=== PATIENT | male | born 1945 | race Caucasian/White ===

== ENCOUNTER 2016-11-12 18:51 | Inpatient (IN) | payer OTHER ==
[~2016-11-12] VITALS: Ht 175.3 cm; Wt 88.9 kg
--- NOTE | ~2016-11-12 | EXE ---
[facility] [place] [address] STRESS ECHOCARDIOGRAM Name: CLARISSE MATA Room #: 204-P [facility]#: [id number] Admission: 11/12/16 Attend Phys: Talib Rosas, Discharge: 11/13/16 Date of : 47 Date of Service: 11/13/16 1129 Report #: [id number] THIS REPORT FOR: //name// APPROVED REPORT Exam: Stress Echocardiogram Reason for Exam: Chest pain Patient Location: Echo lab Stress Nurse: Jasmina Barrientos RN HR: 86 bpm Medical History Medical History: HTN, Hyperlipidemia Cardiac Risk Factors: HTN, Hyperlipidemia Exercise History: Sedentary Procedure The patient underwent an Exercise Stress Test using the Grant Protocol. Blood pressure, heart rate, and EKG were monitored. An Echocardiogram was performed by commercial maintenance technician in four stages in quad fashion. At peak stress, four selected images were obtained and placed side by side with resting images for comparison. Testing Details Test: Exercise stress testing was performed using a Grant protocol. HR Resting HR: 86 bpm Max Heart Rate (APMHR): 150 bpm Max HR Achieved: 173 bpm Target HR (85% APMHR): 127 bpm % of APMHR: 115 Recovery HR: 97 bpm HR response to stress: Normal HR response to stress BP Resting BP: 154/108 mmHg Max BP: 200/110 mmHg Recovery BP: 152/102 mmHg ECG Resting ECG: NSR, normal EKG Recovery ECG: NSR, normal EKG Clinical Reason for Termination: Completed protocol [facility] [place] [address] STRESS ECHOCARDIOGRAM Name: CLARISSE MATA [place] Room #: 204-P [facility]..#: [id number] Admission: 11/12/16 Attend Phys: Talib Rosas, Discharge: 11/13/16 Date of : 47 Date of Service: 11/13/16 1129 Report #: [id number] Exercise duration: 6.5 min Exercise capacity: 9.3 METs Overall Exercise Capacity for Age: Good Pre-Stress Echo The resting Echocardiogram showed normal left ventricular contractility with an estimated Ejection Fraction of about 55-60%. Post-Stress Echo The stress Echocardiogram showed normal left ventricular contractility with an estimated Ejection Fraction of about 65-70%. Clinical Normal augmentation of myocardial wall segments using a 17 segment model. <ELECTRONICALLY SIGNED> By: Jaylan Morrell MD, FACC 11/13/161128 28 28 Jaylan Morrell MD, FACC /INF
--- NOTE | ~2016-11-12 | EKG ---
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: KALE : 1945 Requested By: Ursula Ash Order Number: [id number] MD: Kev Gooden Measurements Intervals [place] Rate: 107 P: 49 [place]: 161 QRS: 31 QRSD: 98 T: 44 QT: 310 QTc: 414 Interpretive Statements Sinus tachycardia RSR' in V1 or V2, probably normal variant Nonspecific ST segment abnormality No previous ECG available for comparison Electronically Signed On 11-13-2016 8:31:35 CDT by Kev Gooden [email or web address] <ELECTRONICALLY SIGNED> By: Kev Gooden MD, [facility] 11/13/16 0831 50 50 Kev Gooden MD, FAC /EPI
[2016-11-12] MEDS ORDERED: AMLODIPINE-BEN1 EAC5 PO (19:23)
[2016-11-12 19:32] LABS: MCH 33.2 pg (26.0-34.0); WBC 7.7 thou/uL (4.0-11.0)
[2016-11-12 19:34] LABS: ABSOLUTE NEUTROPHILS 5.4 thou/uL (1.4-8.2); BASOPHILS 0.7 % (0.0-2.0); HEMATOCRIT 45.4 % (42.0-52.0); HEMOGLOBIN 15.9 gm/dL (14.0-18.0); LYMPHOCYTES 18.1 % (24.0-44.0); MCHC 35.1 g/dL (28.0-37.0); MCV 94.6 fL (80.0-100.0); MONOCYTES 8.5 % (1.0-8.0); PLATELET COUNT 215 thou/uL (150-400); POLYS 69.7 % (36.0-66.0); RBC 4.79 mil/uL (4.50-6.00); RDW 13.2 % (10.5-14.5)
[2016-11-12 19:35] LABS: MANUAL DIFF NO
[2016-11-12 19:51] LABS: ANION GAP 10 mmol/L (7-16); BUN 16 mg/dL (7-18); CALCIUM 9.3 mg/dL (8.5-10.1); CHLORIDE 101 mmol/L (98-107); CO2 26 mmol/L (21-32); GLUCOSE 128 mg/dL (70-99); POTASSIUM 3.7 mmol/L (3.5-5.1); SODIUM 137 mmol/L (136-145); TROPONIN-I < 0.04 ng/mL (<0.04-0.07)
[2016-11-12] MEDS ORDERED: IBUPROFEN 400400 M2 PO (23:11)
[2016-11-12] MEDS ORDERED: APAP650 PO (23:11)
[2016-11-12] MEDS ORDERED: DAILY MULTIPLE1 EACH PO (23:12)
[2016-11-13 01:08] LABS: GLYCOHEMOGLOBIN (HGB A1C) 5.2 % (4.8-5.6)
[2016-11-13 07:57] LABS: ANION GAP 7 mmol/L (7-16); BUN 13 mg/dL (7-18); CALCIUM 8.7 mg/dL (8.5-10.1); CHLORIDE 102 mmol/L (98-107); CO2 27 mmol/L (21-32); GLUCOSE 120 mg/dL (70-99); SODIUM 136 mmol/L (136-145)
[2016-11-13 08:04] LABS: ALBUMIN 3.3 g/dL (3.4-5.0); ALKALINE PHOSPHATASE 81 U/L (46-116); CHOLESTEROL 197 mg/dL (<200); HDL CHOLESTEROL 50 mg/dL (>40); LDL CHOLESTEROL 115 mg/dL (<100); MAGNESIUM 1.9 mg/dL (1.8-2.4); SGOT 19 U/L (15-37); SGPT 29 U/L (30-65); TC:HDL 3.9 Ratio (Not establshd); TOTAL BILIRUBIN 0.6 mg/dL (<0.1-1.0); TOTAL PROTEIN 6.7 g/dL (6.4-8.2); TRIGLYCERIDE 162 mg/dL (<150); TROPONIN-I < 0.04 ng/mL (<0.04-0.07); VLDL 32 mg/dL (<40)
[2016-11-13] MEDS ORDERED: YOSPRALA DR 811 EACH PO (09:46)
[2016-11-13] MEDS ORDERED: PRAVACHOL20 MG PO (09:47)
== END 2016-11-13 10:49 | disposition home or self-care (01) | DRG 313 ==
LOC: ER 18:51 → EROBS 21:06 → 2N 21:06
PROVIDERS: Emergency Medicine; Nurse Practitioner
DX: R07.89 Other chest pain (principal); I10 Essential (primary) hypertension; M19.90 Unspecified osteoarthritis, unspecified site; E78.5 Hyperlipidemia, unspecified; E78.00 Pure hypercholesterolemia, unspecified; Z88.0 Allergy status to penicillin; Z90.49 Acquired absence of other specified parts of digestive tract; Z88.1 Allergy status to other antibiotic agents
CPT/HCPCS: 10081

== ENCOUNTER 2018-09-30 20:21 | Emergency (ER) | payer OTHER ==
[~2018-09-30] VITALS: Ht 175.3 cm; Wt 90.7 kg
[~2018-09-30 20:21] MED LIST: AMLODIPINE-BEN1 EAC5 PO; APAP650 PO; DAILY MULTIPLE1 EACH PO; IBUPROFEN 400400 M2 PO; PRAVACHOL20 MG PO; YOSPRALA DR 811 EACH PO
[2018-09-30 21:32] LABS: ABSOLUTE NEUTROPHILS 4.8 thou/uL (1.4-8.2); BASOPHILS 1.2 % (0.0-2.0); EOSINOPHILS 2.4 % (0.0-3.0); HEMATOCRIT 40.9 % (42.0-52.0); HEMOGLOBIN 14.4 gm/dL (14.0-18.0); LYMPHOCYTES 16.4 % (24.0-44.0); MCH 33.6 pg (26.0-34.0); MCHC 35.1 g/dL (28.0-37.0); MCV 95.8 fL (80.0-100.0); MONOCYTES 8.9 % (1.0-8.0); PLATELET COUNT 191 thou/uL (150-400); POLYS 71.1 % (36.0-66.0); RBC 4.27 mil/uL (4.50-6.00); RDW 13.1 % (10.5-14.5); WBC 6.7 thou/uL (4.0-11.0)
[2018-09-30 21:44] LABS: ANION GAP 9 mmol/L (7-16); BUN 15 mg/dL (7-18); CALCIUM 8.8 mg/dL (8.5-10.1); CHLORIDE 103 mmol/L (98-107); CO2 24 mmol/L (21-32); CREATININE 0.9 mg/dL (0.7-1.3); GLUCOSE 109 mg/dL (74-106); POTASSIUM 3.6 mmol/L (3.5-5.1); SODIUM 136 mmol/L (136-145)
[2018-09-30 21:52] LABS: TROPONIN-I <0.06 ng/mL (<0.06)
[2018-10-01 00:39] VITALS: BP 141/95
--- NOTE | 2018-10-01 10:06 | EKG ---
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 : 1945 Requested By: Salome Oliver Order Number: [id number] MD: Rodolfo Tillman Measurements Intervals [place] Rate: 99 P: 33 [place]: 142 QRS: 6 QRSD: 96 T: 29 QT: 353 QTc: 453 Interpretive Statements Sinus rhythm Probable left atrial enlargement Baseline wander in lead(s) V6 Compared to ECG 11/12/2016 18:51:02 Sinus tachycardia no longer present ST (T wave) deviation no longer present Electronically Signed On 10-01-2018 10:06:17 LICENSED PHARMACIST by Rodolfo Tillman [email or web address] <ELECTRONICALLY SIGNED> By: Rodolfo Tillman MD 10/01/18 1006 46 46 Rodolfo Tillman MD /EPI
== END 2018-10-01 00:40 | disposition home or self-care (01) ==
LOC: ER 20:21
PROVIDERS: Student in an Organized Health Care Education/Training Program
DX: I10 Essential (primary) hypertension (principal); E78.5 Hyperlipidemia, unspecified; M19.90 Unspecified osteoarthritis, unspecified site; Z90.49 Acquired absence of other specified parts of digestive tract; Z88.0 Allergy status to penicillin; Z88.1 Allergy status to other antibiotic agents

== ENCOUNTER 2019-07-27 19:02 | Emergency (ER) | payer OTHER ==
[~2019-07-27] VITALS: Ht 175.3 cm; Wt 93.0 kg
[2019-07-27 19:26] LABS: ABSOLUTE NEUTROPHILS 5.1 thou/uL (1.4-8.2); BASOPHILS 1.5 % (0.0-2.0); EOSINOPHILS 2.1 % (0.0-3.0); HEMATOCRIT 43.4 % (42.0-52.0); HEMOGLOBIN 14.7 gm/dL (14.0-18.0); LYMPHOCYTES 18.3 % (24.0-44.0); MCH 32.6 pg (26.0-34.0); MCHC 33.9 g/dL (28.0-37.0); MONOCYTES 10.9 % (1.0-8.0); PLATELET COUNT 203 thou/uL (150-400); POLYS 67.2 % (36.0-66.0); RBC 4.52 mil/uL (4.50-6.00); RDW 12.4 % (10.5-14.5); WBC 7.6 thou/uL (4.0-11.0)
[2019-07-27 19:34] LABS: ANION GAP 9 mmol/L (7-16); BUN 19 mg/dL (7-18); CALCIUM 9.9 mg/dL (8.5-10.1); CHLORIDE 103 mmol/L (98-107); CO2 25 mmol/L (21-32); CREATININE 1.3 mg/dL (0.7-1.3); GLUCOSE 105 mg/dL (74-106); POTASSIUM 3.9 mmol/L (3.5-5.1); SODIUM 137 mmol/L (136-145)
[2019-07-27 19:42] LABS: TROPONIN-I <0.06 ng/mL (<0.06)
[2019-07-27 20:14] VITALS: BP 143/92
--- NOTE | 2019-07-28 13:02 | EKG ---
[address] [employer] [place] [address] ELECTROCARDIOGRAM REPORT Name: CLARISSE MATA [id number] Admission: 07/27/19 Attend Phys: Discharge: 07/27/19 Date of : 47 Report #: [id number] THIS REPORT FOR: //name// [facility] ED Test Date: 2019-07-27 Test Time: 19:01:01 Pat Name: CLARISSE MATA Department: Room: Gender: Ship'S Pilot: NORRIS : 1945 Requested By: Jakub Cordon Order Number: [id number] MD: Kev Gooden Measurements Intervals [place] Rate: 84 P: 46 [place]: 144 QRS: 0 QRSD: 98 T: 37 QT: 353 QTc: 418 Interpretive Statements Sinus rhythm Normal tracing Compared to ECG 09/30/2018 20:47:07 No significant changes Electronically Signed On 07-28-2019 13:02:33 VOLUNTEER MANAGER by Kev Gooden [email or web address] <ELECTRONICALLY SIGNED> By: Kve Gooden MD, FAC 07/28/19 1302 1901 190 Kev Gooden MD, FACC /EPI
== END 2019-07-27 20:18 | disposition home or self-care (01) ==
LOC: ER 19:02
PROVIDERS: Emergency Medicine
DX: R07.89 Other chest pain (principal); I10 Essential (primary) hypertension; E78.5 Hyperlipidemia, unspecified; M19.90 Unspecified osteoarthritis, unspecified site; Z88.1 Allergy status to other antibiotic agents; Z88.0 Allergy status to penicillin; Z79.899 Other long term (current) drug therapy; Z79.82 Long term (current) use of aspirin; Z90.49 Acquired absence of other specified parts of digestive tract

== ENCOUNTER → 2020-01-30 | Outpatient (CLI) | payer OTHER | LOC: CAT 09:38 → SJCVCIMAG 09:38 | DX: Z13.6 Encounter for screening for cardiovascular disorders (principal); I25.10 Atherosclerotic heart disease of native coronary artery without angina pectoris; E78.00 Pure hypercholesterolemia, unspecified ==

== ENCOUNTER → 2020-02-07 | Outpatient (CLI) | payer OTHER | LOC: SJCVCIMAG 09:12 | PROVIDERS: ATTEND Internal Medicine Cardiovascular Disease | DX: I65.23 Occlusion and stenosis of bilateral carotid arteries (principal); I10 Essential (primary) hypertension; E78.5 Hyperlipidemia, unspecified ==

== ENCOUNTER → 2020-03-06 | Outpatient (CLI) | payer OTHER | LOC: SJCVC 08:12 | PROVIDERS: ATTEND Internal Medicine Cardiovascular Disease | DX: E78.00 Pure hypercholesterolemia, unspecified (principal) ==

== ENCOUNTER → 2021-07-21 | Outpatient (CLI) | payer OTHER | LOC: SJCVC 09:42 | PROVIDERS: ATTEND Internal Medicine Cardiovascular Disease | DX: I10 Essential (primary) hypertension (principal) ==

== ENCOUNTER → 2021-08-06 | Outpatient (CLI) | payer OTHER | END | disposition home or self-care (01) | LOC: SJCVCIMAG 07:24 | PROVIDERS: ATTEND Internal Medicine Cardiovascular Disease | DX: R07.9 Chest pain, unspecified (principal); R53.83 Other fatigue ==